=== PATIENT | male | born 1940 | race Caucasian/White ===

== ENCOUNTER 2017-01-16 06:44 | Outpatient (CLI) | payer MEDICARE, OTHER ==
[~2017-01-16] VITALS: Ht 182.9 cm; Wt 129.8 kg
--- NOTE | ~2017-01-16 | CATH ---
Cardiac Diagnostic + PCI Report Demographics Patient Name SEBASTIAN Prajapati Gender Male Date of 1940 Age 76 year(s) Patient Number [id number] Date of Study 01/16/2017 Visit Number [id number] Room Number G6[address] [place] [id number] Ht 177.8 cm Wt 129.8 kg Referring Viviana Guzman MD Primary Physician Physician Performing Efstratiou Secondary Physician Physician Joanne Mcnair MD Diagnostic Efstratiou Assisting Physician Physician Joanne Mcnair MD Interventional Efstratiou Physician Staff Electrical Engineer Physician Joanne Mcnair MD Findings and Conclusions Diagnostic Findings and Conclusion Mild pulmonary hypertension No gradient across the aortic valve bioprosthesis Normal cardiac output and wedge pressure 70% distal LAD stenosis corresponding to nuclear defect with borderline ischemic FFR of 0.80 Diagnostic Recommendations PCI to LAD Interventional Findings and Conclusion Successful JUDI to distal LAD Interventional Recommendations DAPT Weigh loss Diet Procedure Description The patient was brought to the diagnostic cardiac catheterization-EP laboratory in the fasting, non-sedated state. Informed consent was obtained in the written and verbal form after the risks and benefits were explained. The patient had no further questions and agreed to proceed. The planned puncture-incision site(s) were shaved and prepped with ChloraPrep and draped in the usual sterile manner. Conscious sedation, supplemental oxygen, and pain control medications were delivered by a registered nurse under physician guidance. Surface ECG rhythm, blood pressure measurement, and pulse oximetry were monitored throughout the procedure. Arterial access. The access site was infiltrated with lidocaine. The vessel was entered with the Seldinger technique. A sheath was advanced into the vessel and used for catheter placement. Venous access. The access site was infiltrated with 2% lidocaine. The vessel was entered with the Seldinger technique. A sheath was advanced into the vessel and used for catheter placement. Selective left coronary angiography. A catheter was advanced into the left coronary vessel ostium under Fluoroscopic guidance. Contrast was injected by hand. Images were obtained in multiple projections. Selective right coronary angiography. A catheter was advanced into the right coronary vessel ostium under fluoroscopic guidance. Contrast was injected by hand. Images were obtained in multiple projections. Left heart catheterization. A catheter was advanced across the aortic valve to the left ventricle under fluoroscopic guidance. Resting hemodynamics were obtained. Right heart catheterization. A [place] Reza catheter was successfully advanced to the right atrium, right ventricle, pulmonary artery, and pulmonary artery wedge position under fluoroscopic guidance. Resting hemodynamics were obtained. Measurements included pressures, arterial and venous oxygen saturation samples, and cardiac output. The [place] was removed without difficulty. FFR measurement was performed. The vessel was entered with a guiding catheter. The FFR wire was normalized and then advanced across the lesion. Maximum hyperemia was achieved using adenosine. Angioplasty and Stent Placement: A guiding catheter was used to intubate the vessel. A 0.14 wire was then used to cross the lesion. A balloon catheter was placed across the lesion and inflated. The balloon catheter was then removed. A Drug Eluting Stent was placed and inflated. Post placement angiograms were performed. Arterial and Venous hemostasis was achieved. The patient was transferred to a regular nursing floor via cart accompanied by a nurse. The patient left the laboratory in stable condition. Diagnostic Cath Status: Elective Interventional Cath Status: Elective Procedure Procedure Type Diagnostic procedure:Angiography:, Right and Left Heart Cath, Coronary Angios PCI procedure:Drug Eluting Coronary Stent:, LAD, Additional Imaging:, FFR/iFR: Indications: Shortness of breath and Abnormal Stress Test. The procedure was explained in detail to the patient. Risks, complications and alternative treatments were reviewed. Written consent was obtained. Medications Reviewed with Patient prior to Procedure. Angiographic Findings Dominance: Left Cardiac Arteries and Lesion Findings LMCA: Normal (0% Stenosis).Patent LAD: Lesion on Dist LAD: Distal subsection.70% stenosis 16 mm length reduced to 0%. Pre procedure STARLA III flow was noted. Post Procedure STARLA III flow was present. The guidewire cross was successful.Culprit lesion. FFR + + + + !FFR !Stage/Medication !Dosage ! + + + + !0.8 !Adenosine (I.V) ! ! + + + + Devices used - Verrata Pressure Wire. Number of passes: 1. - Angiosculpt Balloon 2.5 x 10. Diameter: 2.5 mm. Length: 10 mm. 1 inflation(s) to a max pressure of: 12 john. - Promus Premier 2.5 x 16 Stent. 1 inflation(s) to a max pressure of: 12 john. - NC Emerge Balloon 3.0 x 8. 2 inflation(s) to a max pressure of: 14 john. Lesion on Prox LAD: Proximal subsection.30% stenosis . Lesion on 1st Diag: Proximal subsection.20% stenosis . LCx: Lesion on Prox CX: Proximal subsection.30% stenosis . Lesion on Mid CX: Distal subsection.30% stenosis . Lesion on 1st Ob Maggie: Proximal subsection.20% stenosis . RCA: Normal (0% Stenosis).Patent. non dominant Coronary Tree Procedure Data Procedure Date Date: 01/16/2017Start: 10:30 AMEnd: 11:51 AM Entry Locations - Percutaneous access was performed through the Right Radial artery (Primary location). A 6 Fr sheath was inserted. Unsuccessful closure attempt was performed using: an R band. Hemostasis was successfully obtained using Mechanical Compression. Closure Comments: 14 ml of air in band.. - Percutaneous access was performed through the Right Femoral vein. A 6 Fr sheath was inserted. Hemostasis was successfully obtained using Manual Compression. Closure Comments: Manual pressure held to site by Michelle. Procedure Medications Order and Administration + + + +-------+ !Time !Medication !Dosage !Route ! + + + +-------+ 01/16/2017 !Versed !1 mg !I.V. ! !10:27 AM ! ! ! ! + + + +-------+ 01/16/2017 !Fentanyl !50 mcg !I.V. ! !10:29 AM ! ! ! ! + + + +-------01/16/2017 !PAE Radial Cocktail: Heparin 5000 ! !I.A. ! !10:32 AM !units, Nitroglycerin 200mcg, Verapamil ! ! ! ! !3 mg (ACC_3) ! ! ! + + + +-------01/16/2017 !Oxygen !2 l/min !NC ! !10:34 AM ! ! ! ! + + + +-------+ 01/16/2017 !Heparin (ACC_3) !5000 units !I.V. ! !10:48 AM ! ! ! ! + + + +-------+ !01/16/2017 !Adenosine (IV) !140 !I.V. ! !11:01 AM ! !mcg/kg/min ! ! + + + +-------+ !01/16/2017 !Adenosine (IV) ! !I.V. ! !11:03 AM ! ! ! ! + + + +-------+ !01/16/2017 !Integrilin (ACC_7) !20 mg !I.C. ! !11:08 AM ! ! ! ! + + + +-------+ 01/16/2017 !Brilinta (Ticagrelor) (ACC_20) !180 mg !P.O. ! !11:25 AM ! ! ! ! + + + +-------+ Devices Used - A6 Fr. Balloon Wedge Catheterwas used for:Right heart cath. - A6 Fr. BS JR 4 Diag. Catheterwas used for:Right coronary angiography. - A6 Fr. BS JL 3.5 Diag. Catheterwas used for:Left coronary angiography. - A6 Fr. XBLAD 3.5 Guide Catheterwas used for:Fractional Flow [place] measurments. Contrast Material - Isovue [id number] ml Fluoroscopy Time: Diagnostic: 12:30 minutes. Total: 12:30 minutes. Fluoroscopy Dose: Diagnostic: 1771 mGy. Total: 1771 mGy. Estimated Blood Loss: 30 ml. Additional [facility] PCI Information PCI Indication:PCI for high risk Non-STEMI or unstable angina. Medical History Performed Procedures and Imaging Results - No [facility] stress or imaging studies were performed. Allergies - No known allergies. Risk Factors The patient risk factors include:prior CABG;peripheral arterial disease, hypertension, last creatinine: 1.2 mg/dl, creatinine clearance: 93.14 ml/min, dyslipidemia and prior heart failure . Admission Data Admission Date: 01/16/2017 Admission Time: 06:44 AM Admit Source: Other Insurance Payors: Medicare. Admission Medications + +------+------+ + + + + !Medication !Dosage!Times !Last !Last !Administered !Comments ! ! ! !Per !Delivery !Delivery ! ! ! ! ! !Day !Date !Time ! ! ! + +------+------+ + + + + !CODY ! ! ! ! !Yes ! ! !Inhibitor ! ! ! ! ! ! ! !(any) ! ! ! ! ! ! ! + +------+------+ + + + + !Statin (any)! ! ! ! !Yes ! ! + +------+------+ + + + + !CODY ! ! ! ! !Yes ! ! !Inhibitor ! ! ! ! ! ! ! !(any) ! ! ! ! ! ! ! + +------+------+ + + + + Clinical Evaluation Leading to Procedure - The patient's CAD presentation was assessed as: Unstable angina. - The patient's anginal syndrome during the past two weeks was assessed as: Class II according to the [place] Cardiovascular [employer] Classification System (CCS). - The patient has been in a state of heart failure within the past two weeks. - The patient's heart failure status was assessed as NYHA Class III. Snapshots Hemodynamics Condition: Rest O2 Consumption: Estimated: 288.72Heart Rate: 81 bpm Oxygen Saturation +--------+-----+----+ +---+ + !Location!pCO2 !pO2 !% Saturation !Hgb!O2 Content ! +--------+-----+----+ +---+ + !RA ! ! !65 ! ! ! +--------+-----+----+ +---+ + !PA ! ! !64.9 ! ! ! +--------+-----+----+ +---+ + !AO ! ! !89.5 ! ! ! +--------+-----+----+ +---+ + Pressures (mmHg) +-----+ + !Site !Pressure ! +-----+ + !RA !8/6 (4) ! +-----+ + !RV !39/2 ,5 ! +-----+ + !PCW !9/8 (7) ! +-----+ + !PA !33/13 (19) ! +-----+ + !LV !152/3 ,6 ! +-----+ + !LV !150/3 ,7 ! +-----+ + !AO !139/62 (92) ! +-----+ + !LV !153/3 ,6 ! +-----+ + !AO !144/62 (93) ! +-----+ + Cardiac Output +------+ + + + !Method!CO (l/min) !CI (l/min/m2) !SV (ml) ! +------+ + + + !Reggie !5.75 !2.4 !70.63 ! +------+ + + + Valve Gradients and Areas + +--------+--------+--------+---------+ + + !Valve !Peak !Mean !Area !Index !Flow !Source ! + +--------+--------+--------+---------+ + + !Aortic !14 !9 !2.46 !1.01 !326.89 !Reggie ! + +--------+--------+--------+---------+ + + !Aortic !14 !9 ! ! ! ! ! + +--------+--------+--------+---------+ + + Shunts Oxygen Values O2 Capacity 204 O2 Consumption 288.72 Flows (l/min) Qs 5.78 Qe/Qp 1.01 Qp 5.75 Qp/Qs 0.99 Qe 5.78 Vascular Resistance (dynes x sec x cm-5) + +-----+-----+----+----+---------+-------+ !CO method !TSVR !SVR !TPVR!PVR !TPVR/TSVR!PVR/SVR! + +-----+-----+----+----+---------+-------+ !Reggie !16.09!15.33!3.24!2.11!0.2 !0.14 ! + +-----+-----+----+----+---------+-------+ !Qp or Qs !16.01!15.25!3.24!2.11!0.2 !0.14 ! + +-----+-----+----+----+---------+-------+ Signatures dtt: Savannah Reaves dtd: 01/16/17 1030 Physician Self Edit
[~2017-01-16 06:44] MED LIST: ASPIRIN EC81 MG PO; FENOFIBRATE145 MG PO; FLOMAX0.4 MG PO; LASIX40 MG PO; METAMUCIL660 GM PO; PRINIVIL (ZESTRI5 MG PO; ZOCOR40 MG PO
[2017-01-16 08:19] LABS: BASOPHIL # 0.1 K/uL (0.0-0.2); BASOPHIL % 0.9 %; EOSINOPHIL # 0.1 K/uL (0.0-0.5); EOSINOPHIL % 1.4 %; HEMATOCRIT 40.5 % (37.0-53.0); IMMATURE GRANULOCYTE % 0.7 %; LYMPHOCYTE # 1.4 K/uL (0.8-4.0); LYMPHOCYTE % 24.2 %; MCV 85.4 fl (83.0-98.0); MONOCYTE # 0.5 K/uL (0.0-1.0); MONOCYTE % 9.4 %; MPV 10.1 fl (9.4-12.4); NEUTROPHIL # (ANC) 3.6 K/uL (1.4-9.0); NEUTROPHIL % 63.4 %; NRBC % 0 /100WBC (0-0.00); PLATELET COUNT 183 K/uL (150-450); RBC 4.74 M/uL (3.50-5.50); RDW-CV 13.6 % (11.9-14.6); WBC 5.6 K/uL (4.0-11.0)
[2017-01-16 08:40] LABS: CHLORIDE 101 mMol/L (96-110); CO2 24 mMol/L (22-32); CREATININE 1.2 mg/dL (0.6-1.3); SODIUM 134 mMol/L (135-145)
[2017-01-16 09:05] LABS: MCH 31.6 pg (27.0-34.0)
[2017-01-16 09:20] LABS: PROTIME > 200.0 SECONDS (9.8-11.4); PTT > 300 SECONDS (25-32)
[2017-01-16 09:28] LABS: ANION GAP 15.3 (10.0-19.0); CALCIUM 6.8 mg/dL (8.5-10.5)
[2017-01-16 09:29] LABS: BLOOD UREA NITROGEN 23 mg/dL (6-24)
[2017-01-16 09:31] LABS: ALBUMIN 3.2 gm/dL (3.5-5.0); ALK PHOS 60 IU/L (33-138); TOTAL BILIRUBIN 1.5 mg/dL (0.0-1.5); TOTAL PROTEIN 7.5 g/dL (6.0-8.4)
[2017-01-16 09:32] LABS: ALT 68 IU/L (12-78); AST 153 IU/L (10-40)
[2017-01-16 09:33] LABS: POTASSIUM 6.3 mMol/L (3.7-5.1)
[2017-01-16 09:34] LABS: ESTIMATED GFR (MDRD EQUATION) 59
[2017-01-16 13:16] LABS: CPK 251 IU/L (35-332)
--- NOTE | 2017-01-16 17:13 | NUR ---
Significant Event: A/O x3, cooperative with cares. VSS, SBPs 130-150s, HRs 60s, on room air. No c/o pain. R band in place to R) radial; 8 ml of air remaining. Patient not following wrist precautions very well; has been reminded et reinforced with patient that needs to not move arm much et why. 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 Site is soft non-tender; dressing is C/D/I. Up to bathroom with assist of 1. Follow up: possible d/c tomorrow
[2017-01-16 19:23] LABS: CPK 131 IU/L (35-332)
[2017-01-17 00:12] LABS: CPK 106 IU/L (35-332)
--- NOTE | 2017-01-17 05:17 | NUR ---
A&O. Cooperative. VSS. Bandaid and coban to right radial site. No c/o pain. Continues to have difficulty with wrist precautions. Right groin cath site CDI. Stands at bedside to use urinal. Voiding well. L hand IV SL. Probable discharge today.
[2017-01-17 06:36] LABS: ALBUMIN 3.4 gm/dL (3.5-5.0); CALCIUM 8.5 mg/dL (8.5-10.5); CREATININE 1.2 mg/dL (0.6-1.3)
[2017-01-17 06:39] LABS: CPK 83 IU/L (35-332)
[2017-01-17 07:02] LABS: ANION GAP 20.4 (10.0-19.0); POTASSIUM 4.4 mMol/L (3.7-5.1)
[2017-01-17 07:05] LABS: TOTAL PROTEIN 6.7 g/dL (6.0-8.4)
[2017-01-17 12:50] LABS: CPK 135 IU/L (35-332)
[2017-01-17] MEDS ORDERED: LIPITOR80 MG PO (14:01)
[2017-01-17] MEDS ORDERED: BRILINTA90 MG PO (14:05)
[2017-01-17] MEDS ORDERED: LOVAZA1 GM PO (14:11)
--- NOTE | 2017-01-17 19:52 | NUR ---
Significant Event: A/O x3, cooperative with cares. VSS, SBPs 150s, HRs 70s, on room air. No c/o pain. R) radial cath site, soft non-tender; band-aid et coban intact. R) groin cath site, venous approach, soft, non-tender; dressing C/D/I. Up in room ad anthony. Dismissal instructions given to patient et ; dismissed to front lobby per w/c accompanied by transport staff. Follow up:
== END 2017-01-17 15:30 | disposition disaster alternative care site (69) ==
LOC: GCAT 06:44 → GPCU 06:44 → GPOC 07:00 → GPCU 11:44 → GCAT 01-17 15:30
PROVIDERS: Internal Medicine Cardiovascular Disease
DX: R06.02 Shortness of breath (principal); R94.39 Abnormal result of other cardiovascular function study; I25.10 Atherosclerotic heart disease of native coronary artery without angina pectoris; I50.32 Chronic diastolic (congestive) heart failure; Z95.2 Presence of prosthetic heart valve; E78.1 Pure hyperglyceridemia; E66.01 Morbid (severe) obesity due to excess calories; Z68.41 Body mass index [BMI] 40.0-44.9, adult; Z85.46 Personal history of malignant neoplasm of prostate
CPT/HCPCS: C1725; C1769; C1874; C1887; C1894; C9600; J0153; J1327; J1644; J2001; J2250; J3010; J7030